=== PATIENT | female | born 1985 | race African-American/Black ===

== ENCOUNTER 2023-10-11 10:55 | Inpatient (IN) | payer OTHER ==
[2023-10-11 12:49] LABS: EPI CELLS 14 /uL (0-25.1); HCG,QUALITATIVE URINE Negative; HYALINE CASTS 0 /uL (0-3.1); URINE APPEARANCE CLOUDY; URINE BACTERIA 80 /uL (0-1359); URINE BILIRUBIN NEGATIVE (NEGATIVE); URINE COLOR YELLOW; URINE GLUCOSE (UA) NEGATIVE (NEGATIVE); URINE KETONE NEGATIVE (NEGATIVE); URINE LEUK ESTERASE NEGATIVE (NEGATIVE); URINE NITRITE NEGATIVE (NEGATIVE); URINE PROTEIN NEGATIVE (NEGATIVE); URINE RBC 427 /uL (0-23.9); URINE UROBILINOGEN 0.2 mg/dL (0.2-1.0); URINE WBC 4 /uL (0-25.8)
[2023-10-11] MEDS ORDERED: ACETAMINOPHEN 1000 MG/100 ML BAG IVPB ONE (13:05)
[2023-10-11] MEDS ORDERED: ONDANSETRON 4 MG/2 ML VIAL IVPUSH ONE (13:06)
[2023-10-11] MEDS ORDERED: ACETAMINOPHEN 500 MG TABLET (FP) PO ONE (13:11)
[2023-10-11] MEDS ORDERED: ONDANSETRON *ODT* 4 MG TABLET SL ONE (13:12)
[2023-10-11] MEDS ORDERED: LIDOCAINE 4% PATCH TP ONE ×2 (13:26→15:31)
[2023-10-11] MEDS ORDERED: ACETAMINOPHEN 500 MG TABLET (FP) ONE (13:28)
[2023-10-11] MEDS ORDERED: ONDANSETRON *ODT* 4 MG TABLET ONE ×2 (13:28→20:48)
[2023-10-11 14:29] LABS: POTASSIUM 4.9 mmol/L (3.5-5.1)
[2023-10-11 14:30] LABS: CALCIUM 8.8 mg/dL (8.5-10.1)
[2023-10-11 14:31] LABS: ALBUMIN 3.6 g/dl (3.4-5.0); BLOOD UREA NITROGEN 12.6 mg/dL (7-18)
[2023-10-11 14:35] LABS: BILIRUBIN,TOTAL 0.4 mg/dL (0.2-1); TOT PROT 8.1 g/dl (6.4-8.2)
[2023-10-11] MEDS ORDERED: IBUPROFEN 400 MG TABLET (FP) PO ONE ×2 (15:04→15:30)
[2023-10-11 15:41] LABS: BASO % 0.9 % (0-2.0); EOS % 1.4 % (0-4.5); HEMATOCRIT 35.3 % (32.4-45.2); HEMOGLOBIN 11.3 GM/dL (10.7-15.3); LYMPH % 24.7 % (8-40); MCH 26.6 pg (25.7-33.7); MEAN PLT VOLUME 7.2 fl (7.5-11.1); MONO % 10.1 % (3.8-10.2); NEUT % 62.9 % (42.8-82.8); PLATELET COUNT 352 10^3/uL (134-434); RBC 4.25 M/mm3 (3.60-5.2)
[2023-10-11] MEDS ORDERED: KETOROLAC TROMETHAMINE 15 MG/ML VIAL IM ONE (16:18)
[2023-10-11] MEDS ORDERED: KETOROLAC TROMETHAMINE 15 MG/ML VIAL ONE (16:24)
[2023-10-11] MEDS ORDERED: ONDANSETRON 4 MG TABLET PO ONE (20:47)
[2023-10-11] MEDS ORDERED: TAMSULOSIN HCL 0.4 MG CAP PO ONE (21:24)
[2023-10-11] MEDS ORDERED: CEFTRIAXONE 1 GM in DEXTROSE 5%-WATER - 100 ML IVPB ONE (21:24)
[2023-10-11] MEDS ORDERED: SODIUM CHLORIDE 0.9% 500 ML INFUS.BAG IV ONE (21:24)
[2023-10-11] MEDS ORDERED: TAMSULOSIN HCL 0.4 MG CAP ONE (21:30)
[2023-10-11] MEDS ORDERED: CEFTRIAXONE 1 GM/50 ML BAG ONE (21:31)
[2023-10-11] MEDS ORDERED: LIDOCAINE PATCH REMOVAL MC ONE (22:00)
[2023-10-11] MEDS ORDERED: morphine CARPU-JECT 2 MG/1 ML DISP.SYRIN IVPUSH ONE (22:15)
[2023-10-12] MEDS ORDERED: TAMSULOSIN HCL 0.4 MG CAP PO ONE (00:10)
[2023-10-12] MEDS ORDERED: TAMSULOSIN HCL 0.4 MG CAP ONE (00:16)
[2023-10-12] MEDS: SODIUM CHLORIDE 1,000 ML IV SCH ×3 (00:31→15:13)
[2023-10-12] MEDS: ONDANSETRON 4 MG/2 ML VIAL IVPUSH PRN ×3 (00:32→13:20)
[2023-10-12] MEDS ORDERED: ONDANSETRON 4 MG/2 ML VIAL ONE (00:42)
[2023-10-12 04:19] VITALS: BMI 37.0
[2023-10-12 08:30] LABS: HEMATOCRIT 34.4 % (32.4-45.2); HEMOGLOBIN 11.1 GM/dL (10.7-15.3); MCH 26.5 pg (25.7-33.7); MCHC 32.2 g/dl (32.0-36.0); MEAN CELL VOLUME 82.2 fl (80-96); MEAN PLT VOLUME 7.7 fl (7.5-11.1); PLATELET COUNT 331 10^3/uL (134-434); RBC 4.19 M/mm3 (3.60-5.2); RDW 15.4 % (11.6-15.6); WHITE BLOOD COUNT 9.5 K/mm3 (4.0-10.0)
[2023-10-12 08:35] LABS: INR 1.07 (0.83-1.09); PROTHROMBIN TIME (PATIENT) 12.4 SEC (9.7-13.0)
[2023-10-12 08:49] LABS: EPI CELLS 10 /uL (0-25.1); HYALINE CASTS 0 /uL (0-3.1); PH,URINE 5.5 (5.0-8.0); URINE APPEARANCE CLEAR; URINE BACTERIA 44 /uL (0-1359); URINE BILIRUBIN NEGATIVE (NEGATIVE); URINE COLOR YELLOW; URINE GLUCOSE (UA) NEGATIVE (NEGATIVE); URINE KETONE NEGATIVE (NEGATIVE); URINE LEUK ESTERASE NEGATIVE (NEGATIVE); URINE NITRITE NEGATIVE (NEGATIVE); URINE PROTEIN NEGATIVE (NEGATIVE); URINE RBC 46 /uL (0-23.9); URINE UROBILINOGEN 0.2 mg/dL (0.2-1.0); URINE WBC 29 /uL (0-25.8)
[2023-10-12 08:51] LABS: POTASSIUM 4.2 mmol/L (3.5-5.1)
[2023-10-12 08:54] LABS: MAGNESIUM 1.9 mg/dL (1.8-2.4)
[2023-10-12 08:55] LABS: ALBUMIN 3.1 g/dl (3.4-5.0)
[2023-10-12 08:57] LABS: CREATININE 1.1 mg/dL (0.55-1.3); URIC ACID 4.9 mg/dL (2.6-7.2)
[2023-10-12 08:58] LABS: PHOSPHOROUS 3.1 mg/dL (2.5-4.9)
[2023-10-12 09:00] LABS: BILIRUBIN,TOTAL 0.4 mg/dL (0.2-1); TOT PROT 6.9 g/dl (6.4-8.2)
[2023-10-12] MEDS ORDERED: ENOXAPARIN NA (PORCINE) 40 MG/0.4 ML DISP.SYRIN SQ SCH (10:00)
[2023-10-12] MEDS ORDERED: ACETAMINOPHEN 325 MG TABLET (FP) PO PRN (12:23)
[2023-10-12] MEDS: ENOXAPARIN NA (PORCINE) 40 MG/0.4 ML DISP.SYRIN SQ SCH (18:19)
[2023-10-12] MEDS ORDERED: ACETAMINOPHEN 1000 MG/100 ML BAG IVPB ONE (18:42)
[2023-10-12] MEDS: SODIUM CHLORIDE 0.9% 500 ML INFUS.BAG IV ONE ×2 (18:58→20:55)
[2023-10-12] MEDS ORDERED: KETOROLAC TROMETHAMINE 30 MG/1 ML VIAL IVPUSH ONE (20:32)
[2023-10-12 22:21] VITALS: RESP 18
[2023-10-13] MEDS: SODIUM CHLORIDE 1,000 ML IV SCH ×2 (00:47→14:08)
[2023-10-13] MEDS ORDERED: KETOROLAC TROMETHAMINE 15 MG/ML VIAL IVPUSH ONE ×2 (01:45→21:27)
[2023-10-13] MEDS: ENOXAPARIN NA (PORCINE) 40 MG/0.4 ML DISP.SYRIN SQ SCH (09:45)
[2023-10-13] MEDS: TAMSULOSIN HCL 0.4 MG CAP PO SCH (09:46)
[2023-10-13] MEDS: ONDANSETRON 4 MG/2 ML VIAL IVPUSH PRN ×2 (11:56→18:37)
[2023-10-13] MEDS ORDERED: SODIUM CHLORIDE 1,000 ML IV SCH (12:45)
[2023-10-13] MEDS: ACETAMINOPHEN 1000 MG/100 ML BAG IVPB PRN (17:20)
[2023-10-14] MEDS: ACETAMINOPHEN 1000 MG/100 ML BAG IVPB PRN ×2 (02:57→09:39)
[2023-10-14 08:40] LABS: POTASSIUM 4.1 mmol/L (3.5-5.1)
[2023-10-14 08:43] LABS: ALBUMIN 2.7 g/dl (3.4-5.0); BLOOD UREA NITROGEN 7.8 mg/dL (7-18)
[2023-10-14 08:46] LABS: CREATININE 1.5 mg/dL (0.55-1.3)
[2023-10-14 08:48] LABS: BILIRUBIN,TOTAL 0.5 mg/dL (0.2-1)
[2023-10-14] MEDS: ENOXAPARIN NA (PORCINE) 40 MG/0.4 ML DISP.SYRIN SQ SCH (09:40)
[2023-10-14] MEDS: TAMSULOSIN HCL 0.4 MG CAP PO SCH (09:41)
[2023-10-14] MEDS ORDERED: LACTULOSE 20 GM/30 ML UDC (FOR ORAL USE ONLY) PO PRN (13:49)
[2023-10-14] MEDS ORDERED: ACETAMINOPHEN 1000 MG/100 ML BAG IVPB PRN (13:50)
[2023-10-14] MEDS ORDERED: HYDROmorphone HCl 2 MG/ML VIAL IVPUSH PRN (13:50)
[2023-10-14] MEDS: SODIUM CHLORIDE 1,000 ML IV SCH (15:07)
[2023-10-15] MEDS: KETOROLAC TROMETHAMINE 15 MG/ML VIAL IVPUSH PRN ×2 (01:02→10:37)
[2023-10-15] MEDS ORDERED: SODIUM CHLORIDE 1,000 ML IV SCH (02:30)
[2023-10-15] MEDS: TAMSULOSIN HCL 0.4 MG CAP PO SCH (08:47)
[2023-10-15 09:34] LABS: POTASSIUM 4.3 mmol/L (3.5-5.1)
[2023-10-15 09:36] LABS: CALCIUM 8.8 mg/dL (8.5-10.1)
[2023-10-15 09:37] LABS: BLOOD UREA NITROGEN 6.8 mg/dL (7-18)
[2023-10-15 09:39] LABS: CREATININE 1.3 mg/dL (0.55-1.3)
[2023-10-15 09:40] LABS: BILIRUBIN,TOTAL 0.4 mg/dL (0.2-1); TOT PROT 6.8 g/dl (6.4-8.2)
[2023-10-15] MEDS: ENOXAPARIN NA (PORCINE) 40 MG/0.4 ML DISP.SYRIN SQ SCH (09:40)
[2023-10-15] MEDS: SIMETHICONE 80 MG TAB.CHEW (FP) PO PRN ×2 (09:40→14:55)
[2023-10-15 15:04] VITALS: BP 155/96; PULSE 97; TEMP 99.9
== END 2023-10-15 17:54 | disposition home or self-care (01) | DRG 465 ==
LOC: JER 10:55 → JERBED 22:12 → J7W 10-12 04:03
PROVIDERS: ADMIT Internal Medicine; ATTEND Internal Medicine
DX: N13.0 Hydronephrosis with ureteropelvic junction obstruction (principal); D50.9 Iron deficiency anemia, unspecified; E66.9 Obesity, unspecified; Z68.37 Body mass index [BMI] 37.0-37.9, adult; R31.9 Hematuria, unspecified; N17.9 Acute kidney failure, unspecified; I10 Essential (primary) hypertension; N13.4 Hydroureter
CPT/HCPCS: 36415; 74176-TC; 76700-TC; 76775-TC; 80053; 81003; 82746; 83690; 83735; 84100; 84550; 84703; 85025; 85027; 85610; 86850; 86900; 86901; 87086; 87635; 93005; 93010; 99285-25; Q0162